=== PATIENT | male | born 1945 | race Caucasian/White ===

== ENCOUNTER → 2017-09-23 | Outpatient (CLI) | payer OTHER ==
[~2017-09-23] MED LIST: AMR2 PO; ASPEC325 PO; CLB200 PO; GLIM2TAB2 PO; HYDR-5688 PO; LISI-461 PO; NXM/40 PO; SIMV40TA4 PO; SNK PO
== END | disposition home or self-care (01) ==
LOC: C.LABPBG 14:12
PROVIDERS: ATTEND Urology
DX: Z00.00 Encounter for general adult medical examination without abnormal findings (principal); N40.1 Benign prostatic hyperplasia with lower urinary tract symptoms